=== PATIENT | female | born 1985 | race Two or more races ===

== ENCOUNTER 2020-11-27 12:12 | Emergency (ER) | payer OTHER ==
[~2020-11-27] VITALS: Ht 165.1 cm; Wt 72.6 kg
--- NOTE | 2020-11-27 13:00 | NUR ---
to er bed 3, VAUGHN MCGUIRE escorted with Officer Digna [id number] For OK to book Denies medical complaints, lapd at bedside, a&ox4, attached to monitor
[2020-11-27 14:34] VITALS: BP 133/90
== END 2020-11-27 14:34 ==
LOC: ER 12:16
DX: S30.85 Superficial foreign body of abdomen, lower back, pelvis and external genitals (principal); Z02.89 Encounter for other administrative examinations; W45.8XXA Other foreign body or object entering through skin, initial encounter; Y93.89 Activity, other specified; Y92.89 Other specified places as the place of occurrence of the external cause; Y99.8 Other external cause status

== ENCOUNTER 2020-12-07 16:57 | Emergency (ER) | payer OTHER ==
[~2020-12-07] VITALS: Ht 162.6 cm; Wt 70.8 kg
--- NOTE | 2020-12-07 17:15 | NUR ---
GEOFFREY FROM STORE. TOLD PARAMEDICS "SHE INSERTED CHAPSTICK IN RECTUM." THE PATIENT DENIES PAIN. ABDOMEN SOFT AND NON-DISTENDED. DENIES NAUSEA/VOMITING. WILL CONTINUE TO MONITOR THE PATIENT.
--- NOTE | 2020-12-07 19:19 | NUR ---
REPORT GIVEN TO NURSE DWYER
--- NOTE | 2020-12-07 19:50 | NUR ---
Freddy rivera in [facility] - 12/07/20 at 1951 by DOLORES URINE ENT TO JAMES
--- NOTE | 2020-12-07 19:51 | NUR ---
URINE SENT TO LAB
--- NOTE | 2020-12-07 20:08 | NUR ---
VAGINAL SAMPLE TAKEN AND SENT TO LAB
[2020-12-07 20:13] LABS: BILIRUBIN,URINE Negative (NEGATIVE); COLOR,URINE BROWN (YELLOW); LEUKOCYTE ESTERASE ,URINE Small (NEGATIVE); NITRITE, URINE Negative (NEGATIVE); PROTEIN,URINE 30 mg/dl (NEGATIVE); UGLUCOSE Negative (NEGATIVE)
[2020-12-07 20:15] LABS: BACTERIA,URINE 1+ /HPF (None Seen); RBC,URINE 21-50 /HPF (0-2); SQUAMOUS EPITHELIAL CELL,UR Few /HPF (None Seen)
[2020-12-07] MEDS ORDERED: METR-147 PO (20:16)
[2020-12-07] MEDS ORDERED: CEFTRIAXONE 500 MG VIAL IM ONE (20:30)
[2020-12-07] MEDS ORDERED: AZITHROMYCIN 250 MG TABLET PO ONE (20:30)
[2020-12-07] MEDS ORDERED: METRONIDAZOLE 500 MG TABLET PO ONE (20:30)
[2020-12-07] MEDS ORDERED: CEPH500C2 PO (20:43)
--- NOTE | 2020-12-07 21:40 | NUR ---
Patient discharged to home in stable condition. RX Written and verbal after care instructions given. Patient verbalizes understanding of instruction. PT ambulatory with a steady gait
[2020-12-07] MEDS ORDERED: CEFTRIAXONE 500 MG VIAL ONE (21:49)
[2020-12-07] MEDS ORDERED: METRONIDAZOLE 500 MG TABLET ONE (21:49)
[2020-12-07] MEDS ORDERED: AZITHROMYCIN 250 MG TABLET ONE (21:50)
[2020-12-07 23:46] VITALS: BP 128/90
== END 2020-12-07 23:46 | disposition home or self-care (01) ==
LOC: ER 17:06
DX: N89.8 Other specified noninflammatory disorders of vagina (principal); N39.0 Urinary tract infection, site not specified; Z20.2 Contact with and (suspected) exposure to infections with a predominantly sexual mode of transmission
CPT/HCPCS: 74018; 81001; 87210; 87491; 96372; 99284; A6403; J0696; 87086-TC